=== PATIENT | female | born 1965 | race Two or more races ===

== ENCOUNTER 2019-05-13 07:13 | Emergency (ER) | payer OTHER ==
[~2019-05-13] VITALS: Ht 144.8 cm; Wt 69.0 kg
[2019-05-13] MEDS ORDERED: SODIUM CHLORIDE FLUSH 10ML SYR IVF ONE (08:00)
[2019-05-13] MEDS ORDERED: KETOROLAC 30 MG/1 ML IVPush ONE (08:00)
[2019-05-13] MEDS ORDERED: ONDANSETRON 2MG/ML, 2ML IVPush ONE (08:00)
[2019-05-13] MEDS ORDERED: HYDROmorphone 2 MG/ML, 1ML IVPush PRN (08:00)
[2019-05-13 08:15] LABS: BASOPHILS # (AUTO) 0.02 x10^3/uL (0-0.1); BASOPHILS % (AUTO) 0 % (0-1); EOSINOPHILS # (AUTO) 0.11 x10^3/uL (0-0.4); EOSINOPHILS % (AUTO) 1 % (1-7); LYMPHOCYTES # (AUTO) 1.22 x10^3/uL (1-3.4); LYMPHOCYTES % (AUTO) 11 % (22-44); MD NO; MEAN CORPUSCULAR HEMOGLOBIN 30.2 pg (27.0-34.8); MEAN CORPUSCULAR VOLUME 91.4 fL (80-100); MEAN PLATELET VOLUME 7.9 fL (7.4-10.4); MONOCYTES # (AUTO) 0.43 x10^3/uL (0.2-0.8); MONOCYTES % (AUTO) 4 % (2-9); NEUTROPHILS # (AUTO) 9.56 x10^3/uL (1.8-6.8); NEUTROPHILS % (AUTO) 84 % (42-75); PLATELET COUNT 313 x10^3/uL (130-400); RED BLOOD COUNT 4.95 x10^6/uL (3.82-5.3); RED CELL DISTRIBUTION WIDTH 12.9 % (9.6-15.2)
[2019-05-13 08:26] LABS: ALANINE AMINOTRANSFERASE 52 U/L (12-78); ALBUMIN 4.2 g/dL (3.4-5.0); ANION GAP 9 mmol/L (5-15); CALCIUM 9.5 mg/dL (8.5-10.1); CHLORIDE 105 mmol/L (98-107); CREATININE 1.03 mg/dL (0.55-1.02)
[2019-05-13 08:28] LABS: ALKALINE PHOSPHATASE 108 U/L (45-117); BILIRUBIN,TOTAL 0.7 mg/dL (0.2-1.0); TOTAL PROTEIN 8.2 g/dL (6.4-8.2)
--- NOTE | 2019-05-13 08:30 | NUR ---
PT RESTING IN [facility], IV ESTABLISHED AND PT MEDICATED PER AUG. PT PLACED ON MONITOR. AWAITING LAB AND CT RESULTS. CALL LIGHT WITHIN REACH.
--- NOTE | 2019-05-13 08:32 | NUR ---
PT PLACED ON 1.5L NC FOR SPO2 88% AFTER MEDICATION.
[2019-05-13 08:57] LABS: MICROSCOPIC INDICATED
[2019-05-13 09:10] LABS: CULTURE INDICATED? NO
--- NOTE | 2019-05-13 09:40 | NUR ---
PT RESTING IN [facility], AWAITING DC PAPERWORK. STRAINER GIVEN
--- NOTE | 2019-05-13 10:02 | NUR ---
PT STILL 89-90% SPO2 WITHOUT OXYGEN. CERTIFICATION TECHNICIAN NOTIFIED. OK TO WAIT TO DC PT UNTIL SPO2 >93% ON RA.
[2019-05-13 10:49] VITALS: BP 106/47
--- NOTE | 2019-05-13 10:50 | NUR ---
PT SPO2 95%, PT DISCHAGED WITH WHO WILL BE WITH HER AND DRIVE HER. STRAINER GIVEN. NO NEEDS AT THIS TIME.
== END 2019-05-13 10:51 | disposition home or self-care (01) ==
LOC: ED 08:33
DX: N20.1 Calculus of ureter (principal); E11.9 Type 2 diabetes mellitus without complications; I10 Essential (primary) hypertension; Z90.710 Acquired absence of both cervix and uterus
CPT/HCPCS: 36415; 74176; 80053; 81001; 85025; 96374; 96375; 99284; J1170; J1885; J2405